=== PATIENT | male | born 1995 | race Caucasian/White ===

== ENCOUNTER 2018-08-21 01:30 | Emergency (ER) | payer BC, MEDICAID ==
[~2018-08-21] VITALS: Ht 185.4 cm; Wt 88.6 kg
[2018-08-21] MEDS ORDERED: DIVA-74 PO (01:41)
[2018-08-21 02:34] LABS: BASOPHILS % (AUTO) 0.4 % (0-1); EOSINOPHILS # (AUTO) 0.1 X10'3 (0-0.9); EOSINOPHILS % (AUTO) 1.2 % (0-6); HEMATOCRIT 50.3 % (42.0-52.0); HEMOGLOBIN 17.6 g/dl (14.0-17.9); LYMPHOCYTES # (AUTO) 1.8 X10'3 (1.1-4.8); LYMPHOCYTES % (AUTO) 29.1 % (21-51); MEAN CORPUSCULAR HEMOGLOBIN 31.8 PG (27.0-31.0); MEAN CORPUSCULAR VOLUME 90.9 FL (78-98); MEAN PLATELET VOLUME 8.5 FL (7.4-10.4); MONOCYTES # (AUTO) 0.6 X10'3 (0-0.9); MONOCYTES % (AUTO) 9.2 % (2-12); NEUTROPHILS # (AUTO) 3.7 X10'3 (1.8-7.7); NEUTROPHILS % (AUTO) 60.1 % (42-75); PLATELET COUNT 222 X10'3 (140-440); RED BLOOD COUNT 5.53 X10'6 (4.70-6.10); RED CELL DISTRIBUTION WIDTH 12.8 % (11.5-14.5); WHITE BLOOD COUNT 6.2 X10'3 (4.5-11.0)
[2018-08-21 02:38] LABS: ALANINE AMINOTRANSFERASE 51 U/L (12-78); ALBUMIN 4.3 G/DL (3.4-5.0); ALBUMIN/GLOBULIN RATIO 1.4 (1.1-1.5); ALKALINE PHOSPHATASE 85 IU/L (46-116); ANION GAP 7 (8-16); ASPARTATE AMINO TRANSFERASE 18 U/L (10-37); BILIRUBIN,TOTAL 0.4 MG/DL (0.1-1.0); BLOOD UREA NITROGEN 10 MG/DL (7-18); BUN/CREATININE RATIO 11.4 (5.4-32.0); CALCIUM 8.9 MG/DL (8.5-10.1); CHLORIDE 105 MMOL/L (99-107); CREATININE 0.88 MG/DL (0.60-1.10); ETHANOL < 0.010 GM/DL (0.0-0.010); GLUCOSE 90 MG/DL (70-104); POTASSIUM 3.7 MMOL/L (3.5-5.1); SODIUM 139 MMOL/L (135-145); TOTAL CARBON DIOXIDE 26.7 MMOL/L (24-32); TOTAL PROTEIN 7.4 G/DL (6.4-8.2); eGFR > 90 ML/MIN
[2018-08-21 03:04] LABS: URINE AMPHETAMINE SCREEN NEGATIVE (Neg); URINE BARBITUATE SCREEN NEGATIVE (Neg); URINE BENZODIAZEPINES SCREEN NEGATIVE (Neg); URINE CANNABINOID SCREEN NEGATIVE (Neg); URINE COCAINE SCREEN NEGATIVE (Neg); URINE METHADONE SCREEN NEGATIVE (Neg); URINE OPIATE SCREEN NEGATIVE (Neg); URINE PHENCYCLIDINE SCREEN NEGATIVE (Neg)
--- NOTE | 2018-08-21 06:45 | NUR ---
Receiced Pt im bed sleeping w/o distress, and normal respirations.
--- NOTE | 2018-08-21 08:40 | NUR ---
Pt's father visiting. SUKHWINDER explained and signed by Pt to allow father to get information. Pt anxious when talking about thoughts of self harm and why he is here. Having a pleasant and appropriate visit with father.
--- NOTE | 2018-08-21 11:17 | NUR ---
Pt in bed resting. Was placed on a 5150 hold by [facility].
--- NOTE | 2018-08-21 13:00 | NUR ---
Pt awake and eating lunch in pleasant mood and able to smile at jokes. Pleasant with staff and made a couple phone calls. Returned to bed to rest.
[2018-08-21] MEDS ORDERED: nicotine 21mg patch - 24 hr TD ONE (13:15)
--- NOTE | 2018-08-21 16:00 | NUR ---
Pt awake in bed in no acute distress. Met with admin to sign hospital admission paperwork. Pt desired to have a smoke, explained he could not and offered nicotine replacement patch as an option. He asked for it and order obtained. Nicotine patch (21mg)applied at 1330.
[2018-08-21 17:43] VITALS: BP 126/75
--- NOTE | 2018-08-21 19:00 | NUR ---
Pt calm and pleasant during shift assessment by RN. Pt would rather go home, but is ok going upstairs and states he probably needs it to get his medications correct. Pt up and caring for hygiene needs.
[2018-08-21] MEDS ORDERED: prazosin 1mg capsule PO SCH (21:00)
[2018-08-21] MEDS ORDERED: divalproex sod 250mg ER (24-hour) tablet PO SCH (21:00)
--- NOTE | 2018-08-21 21:00 | NUR ---
Pt laying awake in bed. Cooperative with HS medications.
[2018-08-22] MEDS ORDERED: lurasidone 20mg tablet PO SCH (07:30)
== END 2018-08-21 22:20 ==
LOC: ER 01:30
DX: F31.9 Bipolar disorder, unspecified (principal); R45.851 Suicidal ideations; Z56.0 Unemployment, unspecified; Z79.899 Other long term (current) drug therapy
CPT/HCPCS: 36415; 80053; 80305; 80320; 85025; 99285

== ENCOUNTER 2018-08-21 21:10 | Inpatient (IN) | payer BC, MEDICAID ==
[~2018-08-21] VITALS: Ht 185.4 cm; Wt 87.0 kg
[~2018-08-21 21:10] MED LIST: DIVA-74 PO
[2018-08-21] MEDS ORDERED: mag hydrox/Alum hydrox/simeth 30ml oral suspension PO PRN (22:50)
[2018-08-21] MEDS ORDERED: hydrOXYzine 25 MG tablet PO PRN (22:50)
[2018-08-21] MEDS ORDERED: acetaminophen 325mg tablet PO PRN ×2 (22:50)
[2018-08-21] MEDS ORDERED: loperamide 2mg capsule PO PRN (22:50)
[2018-08-21] MEDS ORDERED: LORazepam 1 MG tablet PO PRN (22:50)
[2018-08-21] MEDS ORDERED: NICOTINE POLACRILEX 2 MG LOZENGE MM PRN (22:50)
[2018-08-21] MEDS ORDERED: magnesium hydroxide 30ml (MOM) UD suspension PO PRN (22:50)
[2018-08-21 23:19] VITALS: BP 117/81
--- NOTE | 2018-08-22 01:35 | NUR ---
Admit Note: Patient is escorted to [facility] via wheelchair by Josemanuelveronica SOTO, he arrives on unit at 2225. He is shown around the Unit, a safety check and belongings list is completed by [facility]. Patient brought himself to ER after having increasing thoughts of SI. He states he has been experiencing increased depression over the last couple months along with auditory command hallucinations, he say's he felt like he was no longer able to suppress his feelings anymore and that is we he decided to go to the ER. Currently patient denies feeling suicidal and has no plan to harm himself, he agrees that if this changes or if he has thoughts to harm himself that he would locate staff. Patient is A & O x3, calm, cooperative and is linear in his thought.
[2018-08-22 07:15] LABS: CHOL/HDL RATIO 4.7 (0.00-4.99); CHOLESTEROL 141 MG/DL (0-200); HDL CHOLESTEROL 30 MG/DL (35-60); LDL CHOLESTEROL 96 MG/DL (50-100); TRIGLYCERIDES 106 MG/DL (20-135)
[2018-08-22 07:43] VITALS: BP 126/78
[2018-08-22] MEDS: divalproex sodium 250mg tablet PO SCH ×2 (08:16→21:27)
[2018-08-22] MEDS: nicotine 21mg patch - 24 hr TD SCH (08:16)
[2018-08-22] MEDS: lurasidone 20mg tablet PO SCH (08:16)
[2018-08-22 09:14] LABS: HEMOGLOBIN A1C 4.6 % (4.5-6.2)
[2018-08-22] MEDS ORDERED: tuberculin, purif. prot. deriv. 5 units/0.1ml ID ONE (10:00)
--- NOTE | 2018-08-22 15:59 | NUR ---
Nursing Progress Note: Legal hold: 5150 for DTS Report received from nurse EMI Stewart with use of SBAR Why are they here: Patient brought himself to ER after having increasing thoughts of SI. He stated he has been experiencing increased depression over the last couple months along with auditory command hallucinations, he said he felt like he was no longer able to suppress his feelings anymore and that he decided to go to the ER. Assessment What has happened this shift: The pt was sitting up in bed at the change of shift. He was compliant with medication administration. He denied depression, SI, and A/VH. He stated, "feeling good." He shared that he came to the ER due to the voices voices he was hearing. The pt attended the last 30 minutes of the morning group, but did not attend the afternoon group. He napped numerous times during the day. S/I, H/I: Denies A/VH: Denies at this time Sleep: Napped ADL's: Independent Group attendance: Attended last 30 minutes of AM group Were meds taken: Yes Any med S/E: None noted or reported Mental Status Exam Appearance: Neat and clean Eye contact: Direct Behavior: Cooperative Speech: Normal rate and rhythm Mood: Appropriate to situation Affect: Constricted Thought process: Linear Thought Content: States he feels better now that he is on medication Cognition: A&Ox4 Insight: Poor Judgment: Poor Interventions PRN's used: Therapeutic interventions: Therapeutic communication and active listening, medication administration/monitoring/education, encouragement to attend groups, symptom identification and management, maintained therapeutic milieu, Q 15 min checks. Restraints/seclusion/emergency medication: None Justification of Continued Inpatient Treatment: Therapeutic support and medication management needed to provide stabilization of psychosis to prevent decompensation and decreasing risk to patient for readmittance to in-patient unit.
[2018-08-22 20:02] VITALS: BP 130/75
[2018-08-22] MEDS: prazosin 1mg capsule PO SCH (21:27)
--- NOTE | 2018-08-23 00:04 | NUR ---
Nursing Progress Note: Legal hold: 5150 for DTS Report received from nurse Leslie RN with use of SBAR Why are they here: Patient brought himself to ER after having increasing thoughts of SI. He stated he has been experiencing increased depression over the last couple months along with auditory command hallucinations, he said he felt like he was no longer able to suppress his feelings anymore and that he decided to go to the ER. Assessment What has happened this shift: Patient is in bed at the change of shift. He isoaltes to his bed and does not interact with others when he does leave his room. He takes a shower this evening and after eating a snack immediately turns right back to bed. During patients 1:1 assessment he denies SI/HI, VH/AH. He say's that he does have nightmares still which can cause him sleep disturbances. He expresses that he feels he is doing good but states "I am uncomfortable though, with some of the patients here." Patient appears to keep to himself due to these feelings and explains that's why he keeps to his room. He is complaint with all evening medications and takes them without event. S/I, H/I: Denies A/VH: Denies at this time Sleep: Currently sleeping, see sleep assessment ADL's: Independent Group attendance: No groups this shift Were meds taken: Yes Any med S/E: None noted or reported Mental Status Exam Appearance: Neat and clean Eye contact: Direct Behavior: Cooperative/isolative Speech: Normal rate and rhythm Mood: Appropriate to situation Affect: Constricted Thought process: Linear Thought Content: States he feels better now that he is on medication, uncomfortable around other patients Cognition: A&Ox4 Insight: Poor Judgment: Poor Interventions PRN's used: None Therapeutic interventions: 1:1 assessment of patient. Therapeutic communication and active listening, medication administration/monitoring/education, encouragement to attend groups, symptom identification and management, maintained therapeutic milieu, Q 15 min checks. Restraints/seclusion/emergency medication: None Justification of Continued Inpatient Treatment: Therapeutic support and medication management needed to provide stabilization of psychosis to prevent decompensation and decreasing risk to patient for readmittance to in-patient unit.
[2018-08-23] MEDS: divalproex sodium 250mg tablet PO SCH ×2 (07:59→20:41)
[2018-08-23] MEDS: lurasidone 20mg tablet PO SCH (07:59)
[2018-08-23 08:00] VITALS: BP 122/65
[2018-08-23] MEDS: nicotine 21mg patch - 24 hr TD SCH (08:00)
--- NOTE | 2018-08-23 17:07 | NUR ---
Nursing Progress Note: Legal hold: 5150 for DTS Report received from nurse EMI Pablo with use of SBAR Why are they here: Patient brought himself to ER after having increasing thoughts of SI. He stated he has been experiencing increased depression over the last couple months along with auditory command hallucinations, he said he felt like he was no longer able to suppress his feelings anymore and that he decided to go to the ER. Assessment What has happened this shift: Patient visible on unit. This morning patient stated that he felt unsafe on the unit because of all the verbal outbursts from the other patients. Patient stated he felt he could do more healing at home than here. Patient reassured of his safety and encouraged to attend groups and take care of hygiene needs. By the end of the shift, patient had attended both groups and did take a shower and comb his hair. Patient stated he felt more safe now that he had earlier because there had not been a whole lot of acting out by the other patients. Patient stated I feel people genuinely care about me now and patient states that he no longer is having suicidal thoughts because of this. Patient affect remains flat and patient states his depression, though decreased, is still present. S/I, H/I: Denies A/VH: Denies at this time Sleep: Napped ADL's: Independent - showered Group attendance: yes Were meds taken: Yes Any med S/E: None noted or reported Mental Status Exam Appearance: Neat and clean Eye contact: Direct Behavior: Cooperative Speech: Normal rate and rhythm Mood: Appropriate to situation Affect: Constricted Thought process: Linear Thought Content: States he feels better now that he is on medication Cognition: A&Ox4 Insight: Poor Judgment: Poor Interventions PRN's used: Therapeutic interventions: Therapeutic communication and active listening, medication administration/monitoring/education, encouragement to attend groups, symptom identification and management, maintained therapeutic milieu, Q 15 min checks. Restraints/seclusion/emergency medication: None Justification of Continued Inpatient Treatment: Therapeutic support and medication management needed to provide stabilization of psychosis to prevent decompensation and decreasing risk to patient for readmittance to in-patient unit.
[2018-08-23 20:00] VITALS: BP 119/71
[2018-08-23] MEDS: prazosin 1mg capsule PO SCH (20:41)
--- NOTE | 2018-08-23 22:58 | NUR ---
Nursing Progress Note: Legal hold: 5150 for DTS Report received from nurse EMI Pablo with use of SBAR Why are they here: Patient brought himself to ER after having increasing thoughts of SI. He stated he has been experiencing increased depression over the last couple months along with auditory command hallucinations, he said he felt like he was no longer able to suppress his feelings anymore and that he decided to go to the ER. Assessment What has happened this shift: Patient requested that his room be moved because being around his roommate was making him feel like he wanted to leave. Room was changed, and pt was relocated to [address] next to the window, which he voiced "this is much better, thank you." Pt is cooperative with assessment, makes occasional eye contact but generally looks down. 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 Were meds taken: Yes Any med S/E: None noted or reported Mental Status Exam Appearance: well groomed Eye contact: Direct Behavior: Cooperative Speech: Normal rate and rhythm Mood: Appropriate to situation Affect: Constricted Thought process: Linear Thought Content: States his depression is improving Cognition: A&Ox4 Insight: Poor Judgment: Poor Interventions PRN's used: none Therapeutic interventions: Therapeutic communication and active listening, medication administration/monitoring/education, encouragement to attend groups, symptom identification and management, maintained therapeutic milieu, Q 15 min checks. Restraints/seclusion/emergency medication: None Justification of Continued Inpatient Treatment: Therapeutic support and medication management needed to provide stabilization of psychosis to prevent decompensation and decreasing risk to patient for readmittance to in-patient unit.
[2018-08-24] MEDS ORDERED: lurasidone 20mg tablet PO SCH (07:30)
[2018-08-24 07:45] VITALS: BP 121/76
[2018-08-24 07:52] VITALS: BP 121/76
[2018-08-24] MEDS: divalproex sodium 250mg tablet PO SCH (07:59)
[2018-08-24] MEDS: nicotine 21mg patch - 24 hr TD SCH (08:01)
[2018-08-24] MEDS ORDERED: DIVA250T4 PO (10:51)
[2018-08-24] MEDS ORDERED: PRAZ1CAP5 PO (10:51)
[2018-08-24] MEDS ORDERED: HYDR-3686 PO (10:51)
[2018-08-24] MEDS ORDERED: LURA20TA PO (10:51)
--- NOTE | 2018-08-24 11:40 | NUR ---
Nursing Progress Note: Legal hold: 5150 for DTS Report received from nurse EMI Pablo with use of SBAR Why are they here: Patient brought himself to ER after having increasing thoughts of SI. He stated he has been experiencing increased depression over the last couple months along with auditory command hallucinations, he said he felt like he was no longer able to suppress his feelings anymore and that he decided to go to the ER. Assessment What has happened this shift: Pt up for breakfast, rated his depression at a /10, denied SI/HI/AH/VH. Pt c/o feeling tired, stated he could not fall asleep last night until around 2 in the morning. S/I, H/I: Pt denies A/VH: Pt denies Sleep: Pt stated he did not sleep well, slept 5.25 hours per noc shift report ADL's: Independent Group attendance: No, pt is preparing for discharge today Were meds taken: Yes Any med S/E: None noted or reported Mental Status Exam Appearance: Neat, appropriate Eye contact: good Behavior: Cooperative, quiet, isolative to self Speech: clear, audible, normal rate and rhythm Mood: slightly depressed Affect: blunted, constricted Thought process: Linear Thought Content: Pt states he is fine, focused on discharge home today Cognition: A&Ox4 Insight: fair Judgment: fair Interventions PRN's used: none Therapeutic interventions: 1:1 assessment, encouragement to express thoughts and feelings, medication administration/education/monitoring, discharge education, Q 15 min safety checks. Restraints/seclusion/emergency medication: None Justification of Continued Inpatient Treatment: Plan is for pt to discharge home today with follow up care arranged with [facility] as well as Dr Weinberg, pt's PCP.
--- NOTE | 2018-08-24 12:10 | NUR ---
DISCHARGE NOTE: Pt discharged home at 1140, friend came and picked him up, ambulated off the unit accompanied by PCT. Paper Rx's provided, discharge instructions reviewed including appointments, follow up care, and prescriptions, pt expressed understanding, all belongings returned.
== END 2018-08-24 11:40 | disposition home or self-care (01) | DRG 885 ==
LOC: ADULT MH 21:10 → UNDOADMIN 21:10 → ADULT MH 08-23 20:21
PROVIDERS: ADMIT Psychiatry & Neurology Psychiatry; ATTEND Psychiatry & Neurology Psychiatry
DX: F31.32 Bipolar disorder, current episode depressed, moderate (principal); R45.851 Suicidal ideations; F17.210 Nicotine dependence, cigarettes, uncomplicated; F22 Delusional disorders; F29 Unspecified psychosis not due to a substance or known physiological condition; Z79.899 Other long term (current) drug therapy; Z80.8 Family history of malignant neoplasm of other organs or systems; Z84.89 Family history of other specified conditions; Z71.6 Tobacco abuse counseling
CPT/HCPCS: 36415; 80061; 83036; 87070

== ENCOUNTER 2018-11-21 00:31 | Emergency (ER) | payer MEDICARE, MEDICAID ==
[~2018-11-21] VITALS: Ht 185.4 cm; Wt 86.3 kg
[~2018-11-21 00:31] MED LIST changes: -DIVA-74 PO; +DIVA250T4 PO; +HYDR-3686 PO; +LURA20TA PO; +PRAZ1CAP5 PO
[2018-11-21 00:35] VITALS: BP 143/73
[2018-11-21] MEDS ORDERED: TETanus/Pertussis (Acell)/Diphther VAC/PF (Tdap-Adult) 0.5ml syringe IMVAC ONE (00:55)
[2018-11-21] MEDS ORDERED: IBUP-1986 PO (00:57)
== END 2018-11-21 01:16 | disposition home or self-care (01) ==
LOC: ER 00:32
DX: S60.411A Abrasion of left index finger, initial encounter (principal); Z56.0 Unemployment, unspecified; W22.8XXA Striking against or struck by other objects, initial encounter; Y93.89 Activity, other specified; Y92.89 Other specified places as the place of occurrence of the external cause; Y99.9 Unspecified external cause status
CPT/HCPCS: 90471; 99283

== ENCOUNTER 2022-08-27 00:50 | Emergency (ER) | payer MEDICARE, MEDICAID ==
[~2022-08-27] VITALS: Ht 185.4 cm; Wt 95.5 kg
[~2022-08-27 00:50] MED LIST changes: +IBUP-1986 PO; -LURA20TA PO; +LURA20TA8 PO
[2022-08-27 03:46] LABS: CLARITY,URINE SLIGHTLY CLOUDY (Clear); COLOR,URINE YELLOW (Yellow); GLUCOSE, URINE NEGATIVE (Neg); KETONES,URINE NEGATIVE (Neg); LEUKOCYTE ESTERASE ,URINE NEGATIVE (Neg); NITRITES, URINE NEGATIVE (Neg); OCCULT BLOOD,URINE NEGATIVE (Neg); PH,URINE 7.5 (4.8-8.0); PROTEIN,URINE NEGATIVE (Neg); UROBILINOGEN,URINE 0.2 E.U/dL (0.2-1.0)
[2022-08-27 03:48] LABS: UA COLLECTION TYPE CLN CATCH MIDSTREAM
[2022-08-27 03:58] LABS: RBC,URINE NONE SEEN /HPF (0-2); WBC,URINE 0-4 /HPF (0-4)
[2022-08-27 03:59] LABS: BACTERIA,URINE FEW /HPF (Neg); SQUAMOUS EPITHELIAL CELL,UR FEW /LPF (FEW)
[2022-08-27 04:00] LABS: MUCUS STRANDS FEW /LPF (Neg)
[2022-08-27 04:01] LABS: HYALINE CASTS 0-3 /LPF (NEGATIVE)
[2022-08-27 04:21] VITALS: BP 117/80
== END 2022-08-27 04:23 | disposition home or self-care (01) ==
LOC: ER 00:50
DX: N50.812 Left testicular pain (principal); F31.9 Bipolar disorder, unspecified; Z56.0 Unemployment, unspecified
CPT/HCPCS: 76870; 81001; 93976; 99284